=== PATIENT | female | born 1970 | race Two or more races ===

== ENCOUNTER 2025-08-26 10:42 | Emergency (ER) | payer OTHER ==
[~2025-08-26] VITALS: Ht 154.9 cm; Wt 68.9 kg
[2025-08-26] MEDS ORDERED: 0.9 % SODIUM CHLORIDE 1,000 ML IV ONE (11:30)
[2025-08-26] MEDS ORDERED: KETOROLAC TROMETHAMINE 30 MG VIAL IV ONE (11:30)
[2025-08-26] MEDS ORDERED: NIFEDIPINE 10 MG CAPSULE PO ONE ×3 (11:30→15:23)
[2025-08-26 11:48] LABS: BASO % 0.7 % (0.1-1.2); EOS # 0.14 (0.04-0.54); EOS % 1.9 % (0.7-7.0); LYMPH # 2.21 (1.18-3.74); LYMPH % 30.4 % (19.3-53.1); MEAN PLATELET VOLUME 10.10 fl (9.4-12.4); MONO # 0.59 (0.24-0.82); MONO % 8.1 % (4.7-12.5); NEUT # 4.26 (1.56-6.13); NEUT % 58.6 % (34.0-71.1); RED CELL DISTRIBUTION WIDTH 14.2 % (11.6-14.4)
[2025-08-26] MEDS ORDERED: CLONAZEPAM0.5 MG PO (11:57)
[2025-08-26] MEDS ORDERED: ATORVASTATIN CA20 MG PO (11:58)
[2025-08-26] MEDS ORDERED: KETOROLAC TROMETHAMINE 30 MG VIAL ONE ×2 (12:00→15:17)
[2025-08-26 12:12] LABS: INR 1.04
[2025-08-26 12:21] LABS: ALT/SGPT 19.0 U/L (12-78); AST/SGOT 11.0 U/L (15-37); BILIRUBIN TOTAL 0.81 mg/dL (0.3-1.2); BUN CREA RATIO 23.0 (7.0-25.0); CREATININE SERUM 0.95 mg/dL (0.55-1.02); GFR 60.85; GLOBULINA 3.4 G/DL (2.4-3.5); GLUCOSE FASTING 91.0 mg/dL (65-100); OSMOLALITY SERUM 292.0 MOSM/KG (275-295)
[2025-08-26 13:28] LABS: COVID-19 AG NEGATIVE (NEGATIVE)
[2025-08-26] MEDS ORDERED: POTASSIUM BICARBONATE/CIT AC 25 MEQ TABLET.EFF PO ONE (15:15)
[2025-08-26] MEDS ORDERED: BUTALBIT-ACETA1 EACH PO (16:03)
[2025-08-26] MEDS ORDERED: ZOFRAN8 MG PO (16:03)
== END 2025-08-26 18:21 | disposition home or self-care (01) ==
LOC: ER 10:42
PROVIDERS: General Practice
DX: I10 Essential (primary) hypertension (principal); R11.0 Nausea; Z20.822 Contact with and (suspected) exposure to COVID-19; Z88.8 Allergy status to other drugs, medicaments and biological substances; Z91.013 Allergy to seafood